=== PATIENT | male | born 1955 | race Caucasian/White ===

== ENCOUNTER 2017-03-18 23:59 | Emergency (ER) | payer OTHER ==
[2017-03-19 01:11] VITALS: BP 131/90
== END 2017-03-19 01:11 | disposition home or self-care (01) ==
LOC: ED 23:59
DX: R04.0 Epistaxis (principal); J20.9 Acute bronchitis, unspecified
CPT/HCPCS: J0696; J1100; J7620

== ENCOUNTER 2018-11-22 01:57 | Emergency (ER) | payer OTHER ==
[~2018-11-22] VITALS: Ht 167.6 cm; Wt 89.8 kg
[2018-11-22 02:01] VITALS: Ht 167.6 cm; Wt 89.8 kg
[2018-11-22 03:50] VITALS: BP 117/64
== END 2018-11-22 03:50 | disposition home or self-care (01) ==
LOC: ED 01:57
DX: J20.9 Acute bronchitis, unspecified (principal)
CPT/HCPCS: 87804; J1885; Q0092

== ENCOUNTER 2019-07-12 08:14 | Emergency (ER) | payer OTHER ==
[~2019-07-12] VITALS: Ht 167.6 cm; Wt 86.2 kg
[2019-07-12 08:21] VITALS: Ht 167.6 cm; Wt 86.2 kg
[2019-07-12 10:08] VITALS: BP 140/75
== END 2019-07-12 10:08 | disposition home or self-care (01) ==
LOC: ED 08:14
DX: J18.9 Pneumonia, unspecified organism (principal)